=== PATIENT | male | born 1990 | race Two or more races ===

== ENCOUNTER 2017-05-16 21:21 | Emergency (ER) | payer BC, OTHER ==
[~2017-05-16] VITALS: Ht 167.6 cm; Wt 77.1 kg
--- NOTE | 2017-05-16 21:51 | NUR ---
RECIEVED PT FROM HOME WITH FAMILY C/O CHEST PAIN RADITATING "02/06 COMES AND GOES. MOVES THROUGHOUT MY CHEST FOR 2 DAYS". NO SOB NOTED OR VISUAL PAIN. WILL CONTINUE TO MONITOR FOR ANY CHANGES
[2017-05-16] MEDS ORDERED: KETOROLAC TROMETHAMINE INJ 60 MG/2 ML VIAL IM ONE (22:37)
[2017-05-16] MEDS: KETOROLAC TROMETHAMINE INJ 30 MG/ML VIAL IV ONE (22:38)
[2017-05-16 22:48] LABS: BASOPHILS % (AUTO) 0.4 % (0.0-2.0); EOSINOPHILS # (AUTO) 0.3 /CMM (0.0-0.7); HEMATOCRIT 43 % (39-51); HEMOGLOBIN 14.2 g/dL (13.5-17.5); LYMPHOCYTES # (AUTO) 3.2 /CMM (0.8-4.8); LYMPHOCYTES % (AUTO) 36.7 % (20.0-44.0); MEAN CORPUSCULAR HEMOGLOBIN 29 PG (26.0-33.0); MEAN CORPUSCULAR HGB CONC 33 g/dl (31.0-36.0); MEAN CORPUSCULAR VOLUME 87 fL (80-96); MONOCYTES # (AUTO) 0.8 /CMM (0.1-1.30); MONOCYTES % (AUTO) 9.1 % (2.0-12.0); NEUTROPHILS # (AUTO) 4.5 /CMM (1.8-8.9); NEUTROPHILS % (AUTO) 50.8 % (43.0-81.0); PLATELET COUNT (AUTO) 241 /CMM (150-450); RDW COEFFICIENT OF VARIATION 13.1 (11.5-15.0); RED BLOOD CELL COUNT(AUTO) 4.95 MIL/uL (4.5-6.0); WHITE BLOOD COUNT (AUTO) 8.9 K/uL (4.3-11.0)
--- NOTE | 2017-05-16 22:48 | NUR ---
HEALTH PROGRAM MANAGER AT BEDSIDE FOR CHEST XR
[2017-05-16 23:01] LABS: CARBON DIOXIDE 31 mmol/L (21-32); CHLORIDE 106 mmol/L (98-107); CREATININE 0.8 mg/dL (0.6-1.3); GLUCOSE 115 mg/dL (74-106); POTASSIUM 4.7 mmol/L (3.5-5.1); SODIUM SERUM 143 mmol/L (136-145); UREA NITROGEN, BLOOD 14 mg/dL (7-18)
[2017-05-16 23:06] LABS: D-DIMER 0.19 mg/L(FEU (0.17-0.50); INR 0.97 (0.87-1.13); PROTHROMBIN TIME 10.1 SECS (9.5-12.7)
[2017-05-16 23:08] LABS: TROPONIN I < 0.017 ng/mL (0.00-0.056)
--- NOTE | 2017-05-16 23:31 | NUR ---
PATIENT IN BED IN STABLE CONDITION. VITALS WNL
[2017-05-16 23:48] VITALS: BP 120/74
== END 2017-05-16 23:50 | disposition home or self-care (01) ==
LOC: ER 21:22
DX: R07.9 Chest pain, unspecified (principal); F17.200 Nicotine dependence, unspecified, uncomplicated; F12.10 Cannabis abuse, uncomplicated
CPT/HCPCS: 36415; 71010; 80048; 84484; 85025; 85378; 85730; 93005; 96372; 99285; A4606; J1885; Z7610